=== PATIENT | male | born 1955 | race American Indian/Alaskan Native ===

== ENCOUNTER 2018-10-06 08:17 | Day surgery (SDC) | payer OTHER ==
[2018-10-06] MEDS ORDERED: NACL 0.9% 1000 ML 1,000 ML IV SCH (09:00)
[2018-10-06] MEDS ORDERED: DIPRIVAN 10 MG/ML IV ONE ×3 (10:31→11:05)
--- NOTE | 2018-10-06 10:41 | Anesthesia Consultation ---
Anesthesia Consult and Med Hx Date of service: 10/06/18 - Airway Anesthetic Teeth Evaluation: Poor ROM Head & Neck: Adequate Mental/Hyoid Distance: Adequate Mallampati Class: Class III Intubation Access Assessment: Possibly Difficult - Pulmonary Exam CTA: Yes - Cardiac Exam Cardiac Exam: RRR - Pre-Operative Health Status ASA Pre-Surgery Classification: ASA2 Proposed Anesthetic Plan: MAC - Pulmonary Hx Smoking: No Hx Respiratory Symptoms: No - Cardiovascular System Hx Hypertension: Yes Hx Heart Attack/AMI: No - Central Nervous System CVA: No - Endocrine Hx Renal Disease: No Hx Liver Disease: No Hx Non-Insulin Dependent Diabetes: Yes - Other Systems Hx Obesity: No
--- NOTE | 2018-10-06 10:41 | Anesthesia Day of Surgery ---
Anesthesia Day of Surgery - Day of Surgery Patient Examined: Yes Patient H&P Reviewed: Yes Patient is NPO: Yes
[2018-10-06] MEDS ORDERED: WATER FOR IRRIG STERILE ONE (10:51)
[2018-10-06] MEDS ORDERED: WATER FOR IRRIG STERILE IR ONE (10:51)
--- NOTE | 2018-10-06 11:25 | Procedure Note ---
Date of procedure: 10/06/18 Pre-op diagnosis: GERD/Colon Polyp Screening/F/H/O Cancer Post-op diagnosis: other (Moderate,Erosive Esophagitis/Gastric Erosion and Gastritis/Few,Small (possibly Hyperplastic Polyps) in Recto-Sigmoid/ minor,Left Colon Diverticuli/ Minor,Internal Hemorrhoid) Procedure: EGD with Biopsy and Colonoscopy with Biopsy [place] [facility] [place]: BATSHEVA RODRIGUEZ Estimated blood loss: minimal Pathology: list Specimen disposition: to lab Condition: stable Disposition: same day (Treat with PPI and encourage fiber intake, avoid aspirin and NSAID and anticoagulants for 5 days. otherwise resume home medication and follow up in 1 to 2 weeks ([phone]).)
[2018-10-06 11:53] VITALS: BP 116/82
--- NOTE | 2018-10-06 11:54 | Operative Report ---
PROCEDURE: Colonoscopy with biopsy. INDICATIONS: This is a 63-year-old -[place] gentleman who has a family history of cancer. Colonoscopy was done as part of colon polyp screening. DESCRIPTION OF PROCEDURE: The procedure was done after getting informed consent with MAC anesthesia. EGD was done prior to the colonoscopy because of the patient's complaints of GERD symptoms. EGD had shown presence of moderate erosive esophagitis, gastric erosion and gastritis. Initial rectal exam was unremarkable. Instrument was passed through the rectum onto the cecum, which was identified by the ileocecal valve and the appendiceal orifice. Visualization was fair to good. Cecum, ascending colon, and transverse colon showed normal mucosa. There were a few minor diverticula noted in the left colon and the rectosigmoid area showed 3-4 very small polyps, possibly hyperplastic, removed by cold biopsy and the rectum showed some minor internal hemorrhoids on the retroverted view. ASSESSMENT: Colon polyp screening; few rectosigmoid polyps, possibly hyperplastic noted; minor diverticular disease; minor internal hemorrhoids. RECOMMENDATIONS: The patient will be asked to avoid aspirin and aspirin-related products for the next few days. Resume home medications except for aspirin and aspirin-related products. Encouraged the patient to take fiber supplements. The patient will be placed on PPI because of the upper GI findings of gastric erosion and erosive esophagitis and asked to follow up in the office in 1-2 weeks' time. The procedure was done in the GI lab with assistance of the GI lab team, which included Jessica BERNAL and Maryam zhao and with the assistance of Anesthesia. [facility]# [id number] RONA/EMIL
[2018-10-06] MEDS ORDERED: XYLOCAINE MPF 2% ONE (12:30)
--- NOTE | 2018-10-06 12:58 | Operative Report ---
PROCEDURE: EGD with biopsy. INDICATIONS: This is a 63-year-old -[place] gentleman who has been having some GERD symptoms. DESCRIPTION OF PROCEDURE: EGD was done to assess for any upper GI pathology. Procedure was done after getting informed consent with MAC anesthesia. Instrument was passed through the hypopharynx into the esophagus, which showed moderate erosive esophagitis. Biopsy was done from the distal esophagus. Stomach showed some antral erosion and gastritis. Biopsy was done from the gastric antrum, gastric body and angular incisura to rule out for H. pylori. The pylorus was patent. The duodenum in the first and second portion appeared normal. ASSESSMENT: Gastroesophageal reflux disease symptoms, moderate erosive esophagitis, gastric erosion, gastritis. There was minimal bleeding from the biopsy sites. No complications associated with the procedure. PLAN: To treat the patient with PPI, have the patient resume previous home medication, but avoid aspirin and aspirin-related products for the next few days and follow up in the office in 1-2 weeks' time. A colonoscopy will also be done as part of colon polyp screening. Procedure was done in the GI lab with assistance of the GI lab team, which included RN, Jessica House and Maryam zhao and the assistance of anesthesia. JOB# [id number] RONA/EMIL
== END 2018-10-06 08:18 | disposition home or self-care (01) ==
LOC: GIO 08:17
DX: Z12.11 Encounter for screening for malignant neoplasm of colon (principal); K63.5 Polyp of colon; K62.1 Rectal polyp; K21.0 Gastro-esophageal reflux disease with esophagitis; K29.50 Unspecified chronic gastritis without bleeding; B96.81 Helicobacter pylori [H. pylori] as the cause of diseases classified elsewhere; E11.9 Type 2 diabetes mellitus without complications; I10 Essential (primary) hypertension; E78.00 Pure hypercholesterolemia, unspecified; K64.8 Other hemorrhoids; K57.30 Diverticulosis of large intestine without perforation or abscess without bleeding; Z87.891 Personal history of nicotine dependence; Z79.899 Other long term (current) drug therapy; Z96.659 Presence of unspecified artificial knee joint; Z98.890 Other specified postprocedural states
CPT/HCPCS: 82962; 88305; 88342; J2704; J7030